=== PATIENT | male | born 1985 | race Caucasian/White ===

== ENCOUNTER 2020-11-27 11:50 | Emergency (ER) | payer OTHER ==
--- NOTE | 2020-11-27 12:16 | ED Physician Documentation ---
History of Present Illness - Stated complaint Stated Complaint: RT RIB PX - Chief complaint Chief Complaint: Abd Pain - Additonal information Additional information: 35-year-old male presents the emergency department for evaluation of vague d iscomfort in the right upper quadrant of his abdomen. He reported that he woke up with it this morning. It is a constant pressure worse when he takes a deep breath but has no cough or fevers. He does endorse some nausea but no vomiting. Denies changes in bowel habits or flatus. No pertinent past surgical history. No history of similar pain in the past. He otherwise appears well takes no pre scribed medications. Review of Systems Constitutional: reports: Reviewed and negative Ears: reports: Reviewed and negative Nose: reports: Reviewed and negative Throat: reports: Reviewed and negative Cardiac: reports: Reviewed and negative Respiratory: reports: Dyspnea. denies: Cough, Hemoptysis, Wheezing GI: reports: Abdominal Pain, Nausea. denies: Vomiting, Constipation, Hematemesis : denies: Dysuria, Frequency, Hesitancy Skin: reports: Reviewed and negative Musculoskeletal: reports: Reviewed and negative PD PAST MEDICAL HISTORY - Present Medications Home Medications: Ambulatory Orders Medication Instructions Recorded Confirmed Ondansetron Odt [Zofran] 4 mg TL Q6H PRN #10 tablet 11/27/20 - Allergies Allergies/Adverse Reactions: Allergies Allergy/AdvReac Type Severity Reaction Status Date / Time No Known Drug Allergies Allergy Verified 11/27/20 12:03 PD ED PE EXPANDED - General General: Alert, No acute distress - Cardiac Cardiac: Regular Rate, Regular Rhythm, Radial strong equal. No: Murmur Present - Respiratory Respiratory: Clear to ausultation matias. No: Distress, Labored - Abdomen Abdomen: Normal Bowel sounds, Tender to palpation, RUQ (mild RUQ ttp withotu guarding or rebound. negative mcburney's/murphys) - Derm Derm: Normal color, Warm and dry. No: Rash - Extremities Extremities: Normal. No: Deformity, Tenderness Results - Vitals Vitals: Vital Signs - 24 hr 11/27/20 11/27/20 11:58 14:02 Temperature 36.9 C 36.6 C Heart Rate 65 66 Respiratory 16 16 Rate Blood Pressure 127/73 124/74 O2 Saturation 95 98 Oxygen O2 Source Room air - Labs Labs: Laboratory Tests 11/27/20 11/27/20 11/27/20 12:20 12:24 12:24 WBC 9.2 RBC 5.68 Hgb 16.4 Hct 47.7 MCV 84.0 MCH 28.9 MCHC 34.4 RDW 13.8 Plt Count 299 MPV 10.6 Neut # (Auto) 6.1 Lymph # (Auto) 2.1 [place] # (Auto) 0.7 Eos # (Auto) 0.2 Baso # (Auto) 0.0 Absolute Nucleated RBC 0.00 Nucleated RBC % 0.0 Sodium 139 Potassium 3.7 Chloride 103 Carbon Dioxide 26 Anion Gap 10.0 BUN 8 Creatinine 1.0 Estimated GFR (MDRD) 86 L Glucose 114 H Calcium 9.8 Total Bilirubin 1.1 H AST 44 H ALT 80 H Alkaline Phosphatase 73 Total Protein 7.7 Albumin 4.7 Globulin 3.0 Albumin/Globulin Ratio 1.6 Lipase 24 Urine Color YELLOW Urine Clarity CLEAR Urine pH 7.0 Ur Specific [place] 1.010 Urine Protein NEGATIVE Urine Glucose (UA) NEGATIVE Urine Ketones NEGATIVE Urine Occult Blood NEGATIVE Urine Nitrite NEGATIVE Urine Bilirubin NEGATIVE Urine Urobilinogen 0.2 (NORMAL) Ur Leukocyte Esterase NEGATIVE Ur Microscopic Review NOT INDICATED Urine Culture Comments NOT INDICATED - Rads (name of study) CT abd Radiology: Final report received (Mild short segment colonic wall thickening at the [place] flexure suggestive of mild colitis. Mild hepatic steatosis without discrete hepatic mass. Nonspecific splenomegaly.) abd us Radiology: Final report received (no Gallstones seen) PD MEDICAL DECISION MAKING - ED course Complexity details: reviewed results, re-evaluated patient, d/w patient, d/w family ED course: 35-year-old male presents emergency department for evaluation of acute onset right upper quadrant abdominal pain, pressure and fullness in his abdomen. Screening labs did show some nonspecific LFT elevations. Initial ultrasound was completed and did not show findings consistent with cholecystitis. A CT was completed and does show short segment colonic wall thickening at the hepatic flexure. This may in part account for the liver function elevations. Patient does not have fever or leukocytosis will defer antibiotics or steroids at this point. Recommend increase hydration Zofran for nausea follow-up with PMD for reevaluation of LFTs. Emergent return precautions discussed. Departure - Departure Disposition: 01 Home, Self Care Clinical Impression: RUQ abdominal pain, Colitis, LFT elevation Condition: Stable Record reviewed to determine appropriate education?: Yes Prescriptions: Ondansetron Odt [Zofran] 4 mg TL Q6H PRN #10 tablet PRN Reason: Nausea / Vomiting Comments: Angel haro were seen today in the ER today for right upper quadrant abdominal pain. As we discussed your CBC was normal but the liver function tests were slightly abnormal. We did do an ultrasound of the abdomen that did not show gallstones or cholecystitis. We then proceeded do a CT of the abdomen that did show some mild inflammation of the colon in the right upper quadrant. This may account for the upper abdominal pain. It is important you discuss this ED visit with primary care doctor. Your liver function test should be reevaluated in 1 to 2 weeks. I am prescribing some Zofran to help with the nausea. If at any point your symptoms worsen, you have black or bloody stools, fevers suddenly severe or different abdominal pain please return immediately to the ER for a second evaluation.
[2020-11-27] MEDS ORDERED: ONDANSETRON 4 MG/2 ML VIAL IVP STA (12:17)
[2020-11-27 12:37] LABS: BASOPHILS % (AUTO) 0.4 %; EOSINOPHILS # (AUTO) 0.2 10^3/uL (0.0-0.7); EOSINOPHILS % (AUTO) 1.8 %; HCT - HEMATOCRIT 47.7 % (42.0-52.0); HGB - HEMOGLOBIN 16.4 g/dL (14.0-18.0); LYMPHOCYTES # (AUTO) 2.1 10^3/uL (1.5-3.5); MEAN CORPUSCULAR HEMOGLOBIN 28.9 pg (27.0-31.0); MEAN CORPUSCULAR HGB CONC 34.4 g/dL (32.0-36.0); MEAN PLATELET VOLUME 10.6 fL (7.4-11.4); MONOCYTES # (AUTO) 0.7 10^3/uL (0.0-1.0); MONOCYTES % (AUTO) 7.9 %; NEUTROPHILS # (AUTO) 6.1 10^3/uL (1.5-6.6); NEUTROPHILS % (AUTO) 66.7 %; PLT - PLATELET COUNT 299 10^3/uL (130-450); RED BLOOD COUNT 5.68 10^6/uL (4.70-6.10); RED CELL DISTRIBUTION WIDTH 13.8 % (12.0-15.0); WHITE BLOOD COUNT 9.2 x10^3/uL (4.8-10.8)
[2020-11-27 12:38] LABS: BILIRUBIN,URINE NEGATIVE (NEGATIVE); GLUCOSE, URINE (UA) NEGATIVE (NEGATIVE); KETONES,URINE (UA) NEGATIVE (NEGATIVE); LEUKOCYTE ESTERASE, URINE NEGATIVE (NEGATIVE); NITRITE,URINE NEGATIVE (NEGATIVE); OCCULT BLOOD,URINE NEGATIVE (NEGATIVE); PROTEIN,URINE NEGATIVE (NEGATIVE); UROBILINOGEN,URINE 0.2 (NORMAL) E.U./dL (NORMAL)
[2020-11-27 12:39] LABS: CLARITY,URINE CLEAR (CLEAR)
[2020-11-27 12:45] LABS: ALBUMIN 4.7 g/dL (3.2-5.5); ALBUMIN/GLOBULIN RATIO 1.6 (1.0-2.2); BILIRUBIN,TOTAL 1.1 mg/dL (0.2-1.0); CALCIUM 9.8 mg/dL (8.5-10.3); POTASSIUM 3.7 mmol/L (3.5-5.0); TOTAL PROTEIN 7.7 g/dL (6.7-8.2)
[2020-11-27] MEDS ORDERED: PANTOPRAZOLE 40 MG VIAL IVP STA (13:18)
[2020-11-27] MEDS ORDERED: IOVERSOL 320 100 ML VIAL IVP ONE ×2 (13:26→16:32)
--- NOTE | 2020-11-27 13:32 | Ultrasound Report ---
PROCEDURE: Abdomen Limited INDICATIONS: RUQ abd pain TECHNIQUE: Real-time focused scanning was performed of the abdomen, with image documentation. COMPARISON: None FINDINGS: Diffusely mildly echogenic liver consistent with fatty change. Gallbladder is unremarkable without stones or wall thickening or fluid around the gallbladder or pain on examination. Pancreas n ot identified secondary to overlying bowel gas. Right kidney unremarkable. It measures 12.1 cm with n o hydronephrosis. No dilated ducts. Common bile duct measures 3.8 mm. IMPRESSION: 1. Diffuse hepatic steatosis. 2. No evidence of gallstone disease. Reviewed by: Matt Campbell MD on 11/27/2020 1:31 PM PDT Approved by: Matt Campbell MD on 11/27/2020 1:31 PM PDT Station ID: [id number]
--- NOTE | 2020-11-27 15:26 | CT Report ---
PROCEDURE: Abdomen/Pelvis W INDICATIONS: RUQ abd pain CONTRAST: IV CONTRAST: Optiray 320 ml: 100 PO CONTRAST: *NO PO CONTRAST TECHNIQUE: After the administration of intravenous contrast, 5 mm thick sections acquired from the diaphragms to the symphysis. 5 mm thick coronal and sagittal reformats were acquired. For radiation dose reducti on, the following was used: automated exposure control, adjustment of mA and/or kV according to alfredo ent size. COMPARISON: Ultrasound abdomen 11/27/2020. FINDINGS: Image quality: Excellent. ABDOMEN: Lung bases: There is minimal dependent atelectasis. Heart size is normal. Solid organs: There is diffuse hypoattenuation of the liver compatible with fatty infiltration. Gall bladder appears within normal limits without calcified gallstones. Biliary system is non dilated. Pa ncreas enhances normally. No adrenal nodules. Kidneys demonstrate no hydronephrosis. The spleen is mildly enlarged, measuring up to 14.6 cm. Peritoneum and bowel: Small bowel loops demonstrate normal wall thickness and caliber. There is mild segmental colonic wall thickening at the hepatic flexure suggestive of a mild colitis versus artifact from incomplete distention. The appendix is normal in appearance. There is colonic diverticulosis wi thout acute diverticulitis. No free fluid or air. Nodes and vessels: No retroperitoneal or mesenteric adenopathy by size criteria. Aorta and inferior vena cava are normal in size. Miscellaneous: No ventral hernias. PELVIS: Genitourinary: Bladder wall thickness is normal. Miscellaneous: No inguinal hernias or adenopathy. Bones: No suspicious bony lesions. No vertebral body compression fractures. IMPRESSION: 1. Mild short segment colonic wall thickening at the hepatic flexure suggestive of a mild colitis. Ho wever, the findings may be artifactual due to incomplete bowel distention. Recommend correlation clin ically. 2. Mild hepatic steatosis without a discrete hepatic mass. 3. Mild nonspecific splenomegaly. Reviewed by: Angel Cuba MD on 11/27/2020 3:25 PM PDT Approved by: Angel Cuba MD on 11/27/2020 3:25 PM PDT Station ID: [id number]
[2020-11-27 16:12] VITALS: BP 120/70
== END 2020-11-27 16:11 | disposition home or self-care (01) ==
LOC: ED 11:50
DX: K52.9 Noninfective gastroenteritis and colitis, unspecified (principal); R79.89 Other specified abnormal findings of blood chemistry
CPT/HCPCS: 36415; 74177; 76705; 80053; 81003; 83690; 85025; 96374; 96375; 99284; Q9967; 81001; 87086

== ENCOUNTER 2021-02-12 15:16 | Outpatient (CLI) | payer OTHER | END 2021-02-12 23:59 | disposition home or self-care (01) | LOC: LAB.N 15:16 | PROVIDERS: ATTEND Family Medicine | DX: R05.9 Cough, unspecified (principal); R07.0 Pain in throat; Z20.822 Contact with and (suspected) exposure to COVID-19 | CPT/HCPCS: 87070 ==

== ENCOUNTER 2021-04-07 08:00 | Outpatient (CLI) | payer OTHER | END 2021-04-07 23:59 | disposition home or self-care (01) | LOC: LAB 08:00 | PROVIDERS: ATTEND Family Medicine | DX: R07.0 Pain in throat (principal); R05.9 Cough, unspecified; Z20.822 Contact with and (suspected) exposure to COVID-19 | CPT/HCPCS: 87070 ==